=== PATIENT | male | born 1930 | race Caucasian/White ===

== ENCOUNTER → 2019-02-02 11:19 | Outpatient (CLI) | payer MEDICARE, OTHER ==
[2019-02-02 12:14] LABS: HEMATOCRIT 40.4 % (42.0-54.0); LYMPHOCYTES 24.2 % (15-50); MCH 30.2 pg (26.0-34.0); MCHC 32.2 g/dL (31.0-37.0); MEAN PLATELET VOLUME 10.1 fL (7.4-10.4); NEUTROPHILS 65.6 % (40-80); PLATELET COUNT 130 10x3/uL (130-400); RDW 12.5 % (11.5-14.5); WBC 5.4 10x3/uL (4.8-10.8)
[2019-02-02 12:35] LABS: ALBUMIN 4.1 g/dL (3.4-5.0); ALKALINE PHOSPHATASE 93 U/L (46-116); ALT (SGPT) 18 U/L (10-68); BILIRUBIN - TOTAL 0.52 mg/dL (0.2-1.3); CALC OSMOLALITY 288 mosm/kg (275-300); CALCIUM 8.8 mg/dL (8.5-10.1); CARBON DIOXIDE 36.5 mmol/L (21.0-32.0); CHLORIDE - SERUM 102 mmol/L (98-107); CREATININE - SERUM 0.9 mg/dL (0.6-1.3); GLUCOSE 112 mg/dL (74-106); POTASSIUM - SERUM 4.4 mmol/L (3.5-5.1); PROTEIN - SERUM 7.4 g/dL (6.4-8.2); SODIUM 143 mmol/L (136-145); THYROID STIMULATING HORMONE 0.99 uIU/mL (0.36-3.74); UREA NITROGEN 22 mg/dL (7-18); eGFR NON AFRICAN AMERICAN 85 mL/min (90-120)
[2019-02-04 11:10] LABS: LUPUS - INTERPRETATION Comment: (()); LUPUS - THROMBIN TIME 20.1 sec (0.0-23.0); LUPUS - dRVVT 28.2 sec (0.0-47.0); PTT-LA 32.8 sec (0.0-51.9)
[2019-02-04 12:10] LABS: PROTEIN S - FREE 102 % (57-157); PROTEIN S - FUNCTIONAL 93 % (63-140); PROTEIN S - TOTAL 88 % (60-150)
[2019-02-04 14:09] LABS: CEA 2.6 ng/mL (0.0-4.7)
[2019-02-05 03:07] LABS: PROTEIN C - ANTIGEN 110 % (60-150); PROTEIN C - FUNCTIONAL 126 % (73-180)
[2019-02-08 03:07] LABS: FACTOR II DNA ANALYSIS Negative (())
== END | disposition home or self-care (01) ==
LOC: D.LAB 11:19
PROVIDERS: ATTEND Internal Medicine Hematology & Oncology
DX: I26.99 Other pulmonary embolism without acute cor pulmonale (principal); I10 Essential (primary) hypertension; E78.5 Hyperlipidemia, unspecified; R00.1 Bradycardia, unspecified; J45.909 Unspecified asthma, uncomplicated

== ENCOUNTER 2019-03-29 11:21 | Outpatient (CLI) | payer MEDICARE, OTHER ==
[~2019-03-29] VITALS: Ht 182.9 cm; Wt 77.3 kg
--- NOTE | ~2019-03-29 | HEMODYNAMI ---
PATIENT:SARAH ROJAS MEDICAL RECORD: [id number] : [birth year] LOCATION:[facility] ADMISSION DATE: 03/29/19 Generatedon:03/29/201915:17 Patient name: SARAH ROJAS Patient #: [id number] SSN: [id number] : 1930 Date of study: 03/29/2019 Page: Of Hemodynamic Procedure Report Patient Data Patient Demographics Procedure consent was obtained First Name: SARAH Gender: Male Last Name: CRYSTAL : 1930 Patient #: [id number] Age: 88 year(s) Race: SSN: [id number] Additional ID: [id number] Contact details Address: [facility] [place] State: [place] City: [place] Zip code: [address] Past Medical History Allergies Allergen Reaction Date Comments Reported Other allergy 03/29/2019 IODINE AND SHRIMP Admission Admission Data Admission Date: 03/29/2019 Admission Time: 11:21 Arrival Date: 03/29/2019 Arrival Time: 0:00 Admit Source: Other Insurance Payor: Medicare [facility] #: [id number] Height (in.): 72.05 BSA: 1.99 (m2) Height (cm.): 183 BMI: 22.99 (kg/m2) Weight (lbs.): 169.76 Weight (kg.): 77 Lab Results Lab Result Date: 03/29/2019 Lab Result Time: 0:00 Biochemistry Name Units Result Min Max BUN mg/dl 28 --(----)-* 7 18 Creatinine mg/dl 1.1 --(--*-)-- 0.6 1.3 eGFR ml/min 67.32887 *-(----)-- 90 120 NONAFRICAN CBC Name Units Result Min Max Hemoglobin g/dl 12.3 *-(----)-- 13.5 17.5 Procedure Procedure Types Cath Procedure Diagnostic Procedure PPM/ICD PPM Dual Implant Sedation Charges Moderate Sedation up to 30 minutes Procedure Description Procedure Date Procedure Date: 03/29/2019 Procedure Start Time: 14:41 Procedure End Time: 15:14 Procedure Staff Name Function Jalil Chao MD Performing Physician Dashawn Guevara MD Assisting physician Petrona Conde RT Scrub eBe Qeuen RT Monitor Lucila Branch RT Monitor Chance Madrid RN Nurse Procedure Data Cath Procedure Fluoroscopy Diagnostic fluoroscopy Total fluoroscopy Time: 2.8 time: 2.8 min min Diagnostic fluoroscopy Total fluoroscopy dose: dose: 57.27 mGy 57.27 mGy Contrast Material Contrast Material Type Amount (ml) Isovue 300 0 Estimated blood loss: 5 ml Procedure Complications No complications Procedure Medications Medication Administration Route Dosage 0.9% NaCl I.V. 100 ml/hr Oxygen etCO2 Nasal cannula 2 l/min Lidocaine 1% added to field 20 Ancef (1Gm/50ml NS) I.V.P.B 1 g Ancef Irrigation Topical 1 g (1gm/500ml NS) Versed I.V. 2 mg Fentanyl I.V. 100 mcg Versed I.V. 1 mg Fentanyl I.V. 50 mcg Versed I.V. 1 mg Hemodynamics Rest BSA: 1.99 (m2) HGB: 12.3 (g/dl) O2 Consumption: Estimated: 225.5 (ml/min) O2 Con sumption indexed: Estimated:113.32 (ml/min/m) Heart Rate: 70 (bpm) Snapshots Pre Cath Intra NCS Post Cath Vital Signs Time Heart Resp SPO2 etCO2 NIBP (mmHg) Rhythm Pain Sedation Rate (ipm) (%) (mmHg) Status Level (bpm) 14:28:30 55 12 100 0 163/74(133) NSR 0 (11) 10(A) , No pain 14:32:48 61 26 100 0 175/80(146) NSR 0 (11) 10(A) , No pain 14:37:09 59 18 100 0 162/82(145) NSR 0 (11) 10(A) , No pain 14:42:22 67 28 99 0 181/80(139) NSR 0 (11) 10(A) , No pain 14:47:39 66 19 97 0 162/77(132) NSR 0 (11) 10(A) , No pain 14:52:00 70 18 92 0 158/71(118) NSR 0 (11) 9(A) , No pain 14:56:12 71 13 98 0 149/68(120) NSR 0 (11) 9(A) , No pain 15:00:30 73 10 98 0 141/69(118) NSR 0 (11) 9(A) , No pain 15:04:41 75 14 98 0 149/70(116) Paced 0 (11) 10(A) , No pain 15:08:53 80 15 99 0 166/79(137) Paced 0 (11) 10(A) , No pain 15:13:11 63 20 97 0 164/82(135) Paced 0 (11) 10(A) , No pain Medications Time Medication Route Dose Verified Delivered Reason Notes Effectiv eness by by 14:30:16 0.9% NaCl I.V. 100 Chance Chance Per ml/hr [facility] Madrid physician RN RN 14:30:27 Oxygen etCO2 2 Chance Chance for low 02 Nasal l/min Lorigan Lorigan sats cannula RN RN 14:30:55 Lidocaine added 20ml Chance Chance for local 1% to vial Lorigan Lorigan anesthetic field X2 RN RN 14:31:06 Ancef I.V.P.B 1 g Chance Chance Per (1Gm/50ml Mercy iGlmoreigan physician NS) RN RN 14:31:22 Ancef Topical 1 g Chance Chance used for Irrigation Lorigan Lorigan procedure (1gm/500ml RN RN NS) 14:42:33 Versed I.V. 2 mg Chance Chance for Lorigan Lorigan sedation RN RN 14:42:43 Fentanyl I.V. 100 Chance Chance for mcg Lorigan Lorigan sedation RN RN 14:44:34 Versed I.V. 1 mg Chance Chance for Lorigan Lorigan sedation RN RN 14:44:41 Fentanyl I.V. 50 Chance Chance for mcg Lorigan Lorigan sedation RN RN 14:53:55 Versed I.V. 1 mg Chance Chance for Lorigan Lorigan sedation RN publishing director Log Time Note 14:04:27 Informed consent obtained and on chart 14:05:26 Procedure Status Elective Heart Cath (OP). 14:05:28 Time tracking: Regular hours (M-F 7:00 - 5:00) 14:05:32 Plan of Care:Hemodynamics will remain stable., Cardiac rhythm will remain stable., Comfort level will be maintained., Respiratory function will remain adequate., Patient/ family verbilizes understanding of procedure., Procedure tolerated without complication., Recovers from procedure without complications.. 14:05:34 Chance Madrid RN sent for patient. Start room use. 14:06:02 H&P Date Dictated: 03/10/2019 Within 30 days and on chart., H&P Addendu m completed by physician on day of procedure. (MUST COMPLETE FOR ALL OUTPATIENTS). 14:11:29 Lab Result : BUN 28 mg/dl 14: Lab Result : eGFR NONAFRICAN 67.55236 ml/min 14:: Lab Result : Hemoglobin 12.3 g/dl 14: Lab Result : Creatinine 1.1 mg/dl 14:12: Arrival Date: 03/29/2019 12:00:00 AM 14:12:26 Insurance Payor : Medicare 14:12:28 Admit Source: Other 14:12:33 Patient Height : 72.05 inches 14:12:38 Patient Weight : 169.76 lbs 14:12:45 Diagnostic Cath Status : Elective 14:14:29 Patient allergic to Other allergyIODINE AND SHRIMP 14:15:09 Patient received from Pre/Post Procedure Room to CCL 3 Alert and oriented. Tansferred to table in Supine position. 14:15:12 Warm blankets on for patient comfort. 14:15:49 Correct patient and procedure confirmed by team. 14:15:50 ECG and BP/O2 sat monitors applied to patient. 14:20:30 Pre-procedure instructions explained to patient. 14:20:31 Pre-op teaching completed and patient verbalized understanding. 14:20:35 Family in patients room. 14:20:37 Patient NPO since Midnight. 14:20:41 Is the patient allergic to Iodine/contrast media? Yes. 14:20:43 Was the patient premedicated? Yes 14:20:46 Is patient on blood thinner?Yes 14:21:46 LAST DOSE OF PLAVIX AND ZARELTO 03-27-2019. 14:22:12 Patient diabetic? No. 14:22:24 ----Pre-sedation anethsthesia assessment.---- 14:22:29 Previous problem with sedation/anesthesia? No ? 14:23:29 Snore? Yes 14:23:40 Sleep apnea? No 14:23:42 Deviated septum? No 14:23:44 Opens mouth fully? Yes 14:23:45 Sticks out tongue? Yes 14:24:41 Airway obstruction? No BUT DOES WEAR 2 LITERS OF 02 AT NIGHT/HX OF LOBE ECTOMY 14:25:10 Dentures? Yes BRIDGE IN TIGHT 14:25:27 Patient pain scale 0/10 ?. 14:25:48 IV patent on arrival in left forearm with 0.9% NaCl at [facility]. 14::56 Lab results completed and on chart. 14::07 Baseline sample Acquired. 14:26:07 Vital chart was started 14:26:32 Rhythm: sinus bradycardia 14:26:38 Full Disclosure recording started 14::40 - 14:27:00 Left chest area was prepped with chlora-prep and draped in sterile fashion 14:27:03 Alarms reviewed by R. N. 14:27:05 Sharps counted by scrub and verified by R.N. 14:30:16 0.9% NaCl 100 ml/hr I.V. was administered by Chance Madrid RN; Per physician; Verbal order read back and verified. 14:30:26 Use device set DUGLAS PPM 14:30:27 Oxygen 2 l/min etCO2 Nasal cannula was administered by Chance Madrid RN; for low 02 sats; Verbal order read back and verified. 14:30:29 2-0 Ticron Multipack ([id number]) opened to sterile field. 14:30:30 3-0 Vicryl Single Pack [id number] opened to sterile field. 14:30:31 5-0 Monocryl PS2 [id number] opened to sterile field. 14:30:32 Cautery Tip Mobile Home Technician opened to sterile field. 14:30:33 Cautery Pushbutton Pencil opened to sterile field. 14:30:34 Mepilex Dressing ([id number]) opened to sterile field. 14:30:37 Immobilizer Large opened to sterile field. 14:30:55 Lidocaine 1% 20ml vial X2 added to field was administered by Chance Madrid RN; for local anesthetic; Verbal order read back and verified. 14:31:06 Ancef (1Gm/50ml NS) 1 g I.V.P.B was administered by Chance Madrid RN; Per physician; Verbal order read back and verified. 14:31:11 Pre sharps counted by scrub and verified by RN: Sutures: 7; Sponges: 5; Stick needles: 2; Skin needles: 2; Blade: 1; Cautery: 1 14:31:22 Ancef Irrigation (1gm/500ml NS) 1 g Topical was administered by Chance Madrid RN; used for procedure; Verbal order read back and verified. 14:31:27 [employer] renewals representative ALEXIS PIPERMEDINA present for procedure. 14:31:34 Grounding pad site Left thigh. 14:31:36 Grounding pad site free from injury. 14:37:42 --------ALL STOP TIME OUT------ 14:37:42 Final Timeout: patient, procedure, and site verified with staff and physician. All members of the team are in agreement. 14:37:46 Left chest site verified by team. 14:37:49 Fire Safety Assessment: A--An alcohol-based skin anteseptic being used preoperatively., B--The operative or invasive procedure is being performed above the xiphoid process or in the oropharynx., C--Open oxygen or nitrous oxide is being used. 14:37:53 Physical assessment completed. ASA score P 2 - A patient with mild systemic disease as per Jalil Chao MD. 14:37:56 Sedation plan: IV Moderate Sedation Medication:Versed, Fentanyl 14:39:57 Procedure started. 14:41:07 Lidocaine 1% was administered to left subclavicular area by Dashawn Guevara MD . 14:42:33 Versed 2 mg I.V. was administered by Chance Madrid RN; for sedation; Verbal order read back and verified. 14:42:43 Fentanyl 100 mcg I.V. was administered by Chance Madrid RN; for sedation; Verbal order read back and verified. 14:42:50 Incision made to left subclavicular area. 14:44:34 Versed 1 mg I.V. was administered by Chance Madrid RN; for sedation; Verbal order read back and verified. 14:44:41 Fentanyl 50 mcg I.V. was administered by Chance Madrid RN; for sedation; Verbal order read back and verified. 14:45:52 Medtronic 4074-52 PPM Lead opened to sterile field. 14:45:53 Medtronic 4574-45 PPM Lead opened to sterile field. 14:46:[address] Generator [id number] opened to sterile field. 14:46:56 Generator pocket made/opened. 14:49:01 Left subclavian vein accessed with 7Fr Peel Away Sheath. 14:49:06 Left subclavian vein accessed with 7Fr Peel Away Sheath. 14:51:23 Ventricular lead inserted and advanced. 14:51:42 Atrial lead inserted and advanced. 14:53:15 Ventricular lead positioned. 14:53:55 Versed 1 mg I.V. was administered by Chance Madrid RN; for sedation; Verbal order read back and verified. 14:54:15 Ventricular lead tested. 14:54:58 Atrial lead positioned. 14:55:49 Atrial lead tested. 14:56:31 Peel-a-way sheath was split and removed. 14:56:36 Peel-a-way sheath was split and removed. 14:57:23 Ventricular lead tested. 14:59:25 PPM Dual was attached to lead(s) and inserted into pocket. 15:01:05 Device pocket was irrigated with Ancef. 15:01:22 Atrial lead attachment was completed with 2-0 ticron. 15:01:28 Ventricular lead attachment was completed with 2-0 ticron. 15:01:32 Generator was sutured in place with 2-0 ticron. 15:01:43 Subcutaneous closure was completed with 3-0 vicryl plus. 15:05:34 Skin closure was completed with 5-0 monocryl. 15:06:23 Parameters-- Generator: Mode: AAIR/DDDR. Lower Rate: 60bpm. Upper Rate: 130bpm. 15:07:16 Parameters--Ventricular P/R Wave: 7.6mV. Current: ?mA; Threshold: 0.4V ; Impedence: 912OHMS. 15:07:51 Parameters--Atrial P/R Wave: 1.5mV. Current: ?mA; Threshold: 0.7V; Impedence: 570OHMS. 15:08:27 Lt Chest incision was dressed with Mepilex dressing. 15:08:34 Procedure ended.(Physican Out) 15:09:09 Fluoroscopy time 02.80 minutes. 15:09:25 Fluoroscopy dose: 57.27 mGy 15:09: Flurop Dose total: 57.27 15:09:33 Dose Area Product 579.15 mGy/cm. 15:10:48 Sharps counted by scrub and verified by R.N. 15:11:12 Post sharps counted by scrub and verified by RN: Sutures: 7; Sponges: 5 ; Stick needles: 2; Skin needles: 2; Blade: 1; Cautery: 1 15:12:36 Procedure type changed to Cath procedure, Diagnostic procedure, PPM/ICD , PPM Dual Implant, Sedation Charges, Moderate Sedation up to 30 minutes 15:12:47 Contrast amount:Isovue 300 0ml. 15:12:52 Insertion/operative site no bleeding no hematoma. 15:13:05 Post Chest area:stable 15:13:15 Post-procedure physical assessment completed. ASA score P 2 - A patient with mild systemic disease as per Jalil Chao MD. 15:13:21 Post procedure rhythm: paced 15:13:27 Estimated blood loss: 5 ml 15:13:30 Post procedure instruction explained to patient.Patient verbalizes understanding. 15:13:31 Patient needs reinforcement of post procedure teaching. 15:13:33 Procedure and supply charges have been captured, reviewed, submitted an d are correct. 15:14:16 Procedure Complication : No complications 15:14:20 Vital chart was stopped 15:14:25 Operative report dictated upon procedure completion. 15:14:26 See physician's report for complete and final results. 15:14:33 Report given to Med II. 15:14:39 Patient transfered to Med II with Bed. 15:14:43 Procedure ended. 15:14:43 Full Disclosure recording stopped 15:14:45 End room use (Document Last) Device Usage Item Name Manufacture Quantity Catalog Hospital Part Current Minima l Lot# / Serial# Number Charge Number Stock Stock Code 2-0 Ticron Ethicon 3 [id number] [id number] 81012 239337 5 Multipack ([id number]) 3-0 Vicryl Ethicon 1 [id number] [id number] 198801 [id number] 5 Single Pack [id number] 5-0 Monocryl Ethicon 1 Y495G 312566 913669 650041 5 PS2 Y495G Cautery Tip Microtek 1 [id number] 885343 792884 981563 5 Mobile Home [employer] Cautery Microtek 1 [id number] 637062 22355 259751 5 Pushbutton [employer] Pencil Mepilex Cardinal 1 989431 374173 954279 287241 5 [facility] (867134) Immobilizer Cardinal 1 [id number] [id number] 365671 435348 5 Large Health Medtronic Medtronic 1 4074-52 431554 224127 767388 5 [id number] 4074-52 PPM EXP:01/26/2021 Lead Medtronic Medtronic 1 4574-45 827778 356424 110772 5 [id number] 4574-45 PPM EXP:12-29-2020 Lead Medtronic Medtronic 1 [id number] 555219 [id number] [id number] [id number] EXP:08-29-2020 Generator [id number] Signature Audit [place] Stage Time Signature Unsigned Intra-Procedure 03/29/2019 Lucila 3:16:12 PM Jose Carlos RT(R) (CV) Intra-Procedure 03/29/2019 Chance 3:17:05 PM [facility]cy HYATT Intra-Procedure 03/29/2019 Jalil Spain 3:17:40 PM Christopher [address] [place] [address]
[2019-03-29] MEDS ORDERED: HYTRIN10 MG PO (11:48)
[2019-03-29] MEDS ORDERED: LISINOPRIL2.5 MG PO (11:48)
[2019-03-29] MEDS ORDERED: PLAVIX75 MG PO (11:48)
[2019-03-29] MEDS ORDERED: PRAVACHOL40 MG PO (11:49)
[2019-03-29] MEDS ORDERED: XARELTO20 MG PO (11:49)
[2019-03-29] MEDS ORDERED: REMERON15 MG PO (11:49)
[2019-03-29] MEDS ORDERED: ATARAX 25 MG TA25 MG PO (11:50)
[2019-03-29] MEDS ORDERED: HYDROCODON-ACE1 EA10 PO (11:50)
[2019-03-29] MEDS ORDERED: MUPIROCIN22 GM TOPICAL (11:51)
[2019-03-29] MEDS ORDERED: ALBUTEROL SULF8.5 GM INH (11:51)
[2019-03-29] MEDS ORDERED: MULTI-DAY VITAM1 TAB PO (11:52)
[2019-03-29] MEDS ORDERED: METAMUCIL PACKE1 PKT PO (11:52)
[2019-03-29 12:09] VITALS: BP 132/64; BMI 23.1
[2019-03-29 12:20] LABS: APTT 27.6 SECONDS (22.8-39.4); INR 1.11 (0.85-1.17); PROTIME 13.8 SECONDS (11.6-15.0)
[2019-03-29 12:24] LABS: ANION GAP 9.7 mmol/L (8-16); CALCIUM 8.7 mg/dL (8.5-10.1); CARBON DIOXIDE 30.9 mmol/L (21.0-32.0); CREATININE - SERUM 1.1 mg/dL (0.6-1.3); POTASSIUM - SERUM 4.6 mmol/L (3.5-5.1)
[2019-03-29 13:08] LABS: HEMATOCRIT 39.1 % (42.0-54.0); HEMOGLOBIN 12.3 g/dL (13.5-17.5); MCH 30.5 pg (26.0-34.0); MCHC 31.5 g/dL (31.0-37.0); MEAN PLATELET VOLUME 11.4 fL (7.4-10.4); RBC 4.03 10x6/uL (4.20-6.10); RDW 12.7 % (11.5-14.5); WBC 6.4 10x3/uL (4.8-10.8)
[2019-03-29 15:42] VITALS: BP 146/64; Ht 182.9 cm; Wt 77.3 kg
--- NOTE | 2019-03-29 19:18 | NUR ---
RECEIVED BEDSIDE REPORT. PATIENT IS ALERT AND ORIENTED. RESTING COMFORTABLY IN BED. RESPIRATIONS ARE EVEN AND UNLABORED. NO S/S OF DISTRESS. NO C/O PAIN. CALL LIGHT WITHIN REACH. WILL CPOC.
[2019-03-29 20:00] VITALS: BP 128/68
[2019-03-30] VITALS: BP 110/57
[2019-03-30 04:00] VITALS: BP 117/58
[2019-03-30 09:12] VITALS: BP 111/45
--- NOTE | 2019-03-30 09:34 | NUR ---
IV AND TELEMETRY DCD. DC PLANS GIVEN. UNDERSTANDING VOICED. ESCORTED TO CAR BY W/C.
--- NOTE | 2019-03-31 11:45 | OP ---
PATIENT NAME: SARAH GERARDO MEDICAL RECORD: [id number] :[birth year] LOCATION:D.CAT ADMISSION DATE: SURGEON: KO PERAZA MD DATE OF OPERATION: 03/29/2019 PROCEDURE: Lead portion of permanent pacer placement. INDICATION: Sick sinus syndrome with pauses greater than 3 seconds and PAF. SURGEON: Dashawn Guveara MD DESCRIPTION OF PROCEDURE: After left subclavian was cannulated via modified Seldinger technique via Dr. Guevara first, under fluoroscopic guidance. I placed the RV lead in the RV apex without difficulty. After adequate R waves and thresholds were obtained, we then placed the right atrial lead and the right atrial appendage without difficulty. After adequate P waves and thresholds were obtained, the leads were attached to appropriate poles of the generator and the pocket was closed via Dr. Guevara. IMPRESSION: Successful lead portion of permanent pacemaker placement Sarah Gerardo. ESTIMATED BLOOD LOSS: Minimal. DISPOSITION: To floor, stable. COMPLICATIONS: None. TRANSINT:[id number] Voice Confirmation ID: [id number] DOCUMENT ID: [id number] KO PERAZA MD at 1145 CC: [id number] DICTATION DATE: 03/29/19 1507 DEPUTY ASSESSOR: 03/29/19 1834 [facility] CLI 03/30/19 [id number] [place] [address]
--- NOTE | 2019-04-01 11:36 | OP ---
PATIENT NAME: SARAH ROJAS MEDICAL RECORD: [id number] :[birth year] LOCATION:D.CAT ADMISSION DATE: SURGEON: DORIE ARDON MD DATE OF OPERATION: 03/29/2019 PREOPERATIVE DIAGNOSIS: Sick sinus syndrome. POSTOPERATIVE DIAGNOSIS: Sick sinus syndrome. PROCEDURE: Left subclavian vein dual lead pacemaker placement. SURGEON: Dorie Ardon MD CO-SURGEON: Jalil Alexandre MD REPORT OF PROCEDURE: The patient's left chest was prepped and draped in sterile fashion. A total of 20 mL of 1% lidocaine with epinephrine was infused into the surrounding tissues. A skin incision was made on the left superior lateral chest and a subcutaneous pouch was made over the pectoral fascia. [place] were used times 2 to cannulate the left subclavian vein and guidewires were advanced using fluoroscopic guidance. The dilator trocar devices were then placed over the wires and the wires and dilators were removed. The leads were advanced through the trocars. At this point, Dr. Alexandre positioned the leads appropriately in the atrium and ventricle. Once the leads were noted to be in good position and functioning appropriately, then they were sutured into place with 0 Ti-Cron. We affixed the leads to the pacemaker generator, which was placed into the subcutaneous pouch. This generator was sutured to the pectoral fascia using a single interrupted 0 Ti-Cron. We irrigated out the wound with antibiotic solution. The subcutaneous tissues were reapproximated with interrupted 3-0 Vicryl and the skin was closed with running subcutaneous 5-0 Monocryl. COMPLICATIONS: None. CONDITION: Stable. ANESTHESIA: Local MAC. BLOOD LOSS: Minimal. TRANSINT:[id number] Voice Confirmation ID: [id number] DOCUMENT ID: [id number] DORIE ARDON MD at 1136 CC: [id number] DICTATION DATE: 03/29/19 1511 FOUR H AGENT: 03/29/19 1840 [facility] CLI 03/30/19 [address] [place] [address]
== END 2019-03-30 09:40 ==
LOC: D.CATH 11:21 → D.M2 15:14 → D.CATH 03-30 09:40
PROVIDERS: ATTEND Internal Medicine Interventional Cardiology
DX: I49.5 Sick sinus syndrome (principal); I48.0 Paroxysmal atrial fibrillation